=== PATIENT | female | born 1985 | race Caucasian/White ===

== ENCOUNTER 2017-11-18 08:13 | Inpatient (IN) | payer OTHER ==
[2017-11-17] MEDS: LACTATED RINGER'S 1000 ML INJ 1,000 ML IV SCH (20:00)
[2017-11-18] MEDS ORDERED: LACTATED RINGER'S 1000 ML INJ 1,000 ML IV PRN (08:36)
[2017-11-18] MEDS ORDERED: LACTATED RINGER'S 1000 ML INJ 1,000 ML IV SCH (08:36)
--- NOTE | 2017-11-18 08:44 | HHI.HP ---
HPI Chief Complaint postdates induction, on admission pt states SROM'd at 3am today Date Seen: November 18, 2017 Time Seen: 08:30 Travel History International Travel<30 Days: No Contact w/Intl Traveler<30Days: No Known Affected Area: No History of Present Illness HPI 31 yo G1 with galdamez female IUP at 41w1d, EDC 11/10/17, admit for labor induction but states overnight water broke clear fluid leakage since 3am. No regular contractions, no vaginal bleeding, endorses good FM. Pain 2/10 low pressure in pelvis. Weeks Gestation: 41 Para: 0 : 1 Miscarriage: 0 : 0 History Past Medical History Narrative Medical denies significant Obstetric History Obstetric History G1 = current Past Surgical History Narrative Surgical thoracic sympathetectomy Family History Family History: Negative Social History Alcohol Use: No Tobacco Use: No Substance Abuse: No Allergies-Medications (Allergen,Severity, Reaction): Coded Allergies: No Known Allergies (Unverified , 11/18/17) Review of Systems General / Constitutional: Weight Gain, No: Fever, Chills, Other Eyes: No: Diploplia, Blurred Vision, Visual changes, Pain, Photophobia HENT: No: Headaches, Vertigo, Lightheadedness Cardiovascular: No: Irregular Rhythm, Chest Pain or Discomfort, Palpitations, Tachycardia, Syncope, Varicosities, Edema, Cyanosis Respiratory: No: Cough, Short of Breath, Other Gastrointestinal: No: Nausea, Vomiting, Diarrhea Genitourinary: Pelvic Pain (pressure), No: Decreased Urinary Output, Oliguria Musculoskeletal: No: Limited ROM, Weakness, Cramping, Edema, Pain Skin: No Rash, No Itching, No Dryness, No Lumps, No Change in Pigmentation, No Change in Nails, No Alopecia, No Lesions Neurologic: No: Weakness, Dizziness, Syncope, Focal Abnormalities, Coordination Problem, Headache, Slurred Speech, Seizures Psychiatric: No: Depression, Suicidal Ideations, Homicidal Ideation Endocrine: No: Heat Intolerance, Cold Intolerance, Polydipsia, Polyuria, Other Physical Exam Narrative GENERAL: Well-nourished, well-developed patient. SKIN: Warm and dry. HEAD: Normocephalic and atraumatic. EYES: No scleral icterus. No injection or drainage. ENT: No nasal drainage noted. Mucous membranes pink. Airway patent. NECK: Supple, trachea midline. No JVD. CARDIOVASCULAR: Regular rate and rhythm without murmurs, gallops, or rubs. RESPIRATORY: Breath sounds equal bilaterally. No accessory muscle use. BREASTS: . ABDOMEN/GI: Abdomen soft, non-tender, bowel sounds present, no rebound, no guarding Gravid to [41] weeks size Fundal Height: [41] GENITOURINARY: External Genitalia: intact and normal in appearance BUS glands: [wnl] Cervix: [mid] Dilatation: [3] Effacement: [90] Station: [-2] Presentation: [vtx] Membranes: [SROM'd clear at 3am] Uterine Contractions: [q4 min] FHT's: Category: [I] Baseline: [140s] Reactive: [y] Variability: [y] Decels: [n] EXTREMITIES: No cyanosis or edema. BACK: Nontender without obvious deformity. No CVA tenderness. NEUROLOGICAL: Awake and alert. Motor and sensory grossly within normal limits. Five out of 5 muscle strength in all muscle groups. Normal speech. Caprini VTE Risk Assessment Caprini VTE Risk Assessment: No/Low Risk (score <= 1) VTE Pharm Contraindication: Epidural catheter Caprini Risk Assessment Model Point Value = 1 Point Value = 2 Point Value = 3 Point Value = 5 Age 41-60 Minor surgery BMI > 25 kg/m2 Swollen legs Varicose veins or History of unexplained or recurrent spontaneous Oral contraceptives or hormone replacement Sepsis (< 1 month) Serious lung disease, including pneumonia (< 1 month) Abnormal pulmonary function Acute myocardial infarction Congestive heart failure (< 1 month) History of inflammatory bowel disease Medical patient at bed rest Age 61-74 Arthroscopic surgery Major open surgery (> 45 min) Laparoscopic surgery (> 45 min) Malignancy Confined to bed (> 72 hours) Immobilizing plaster cast Central venous access Age >= 75 History of VTE Family history of VTE Factor V Leiden Prothrombin [id number] Lupus anticoagulant Anticardiolipin antibodies Elevated serum homocysteine Heparin-induced thrombocytopenia Other congenital or acquired thrombophilia Stroke (< 1 month) Elective arthroplasty Hip, pelvis, or leg fracture Acute spinal cord injury (< 1 month) Prophylaxis Regimen Total Risk Factor Score Risk Level Prophylaxis Regimen 0-1 Low Early ambulation 2 Moderate Order ONE of the following: *Sequential Compression Device (SCD) *Heparin 5000 units SQ BID 3-4 Higher Order ONE of the following medications: *Heparin 5000 units SQ TID *Enoxaparin/Lovenox 40 mg SQ daily (WT < 150 kg, CrCl > 30 mL/min) *Enoxaparin/Lovenox 30 mg SQ daily (WT < 150 kg, CrCl > 10-29 mL/min) *Enoxaparin/Lovenox 30 mg SQ BID (WT < 150 kg, CrCl > 30 mL/min) AND/OR *Sequential Compression Device (SCD) 5 or more Highest Order ONE of the following medications: *Heparin 5000 units SQ TID (Preferred with Epidurals) *Enoxaparin/Lovenox 40 mg SQ daily (WT < 150 kg, CrCl > 30 mL/min) *Enoxaparin/Lovenox 30 mg SQ daily (WT < 150 kg, CrCl > 10-29 mL/min) *Enoxaparin/Lovenox 30 mg SQ BID (WT < 150 kg, CrCl > 30 mL/min) AND *Sequential Compression Device (SCD) Data Data Vital Signs Reviewed: Yes Orders Orders Admit To Inpatient (11/18/17 ) Code Status (11/18/17 08:36) Vital Signs (Adult) .Per protocol (11/18/17 08:36) Activity Oob Ad Magaly (11/18/17 08:36) Heart (11/18/17 08:36) Amnioinfusion (11/18/17 08:36) Urinary Catheter Management .ONCE (11/18/17 08:36) Diet Liquid (11/18/17 Breakfast) Lactated Ringer's 1000 Ml Inj (Lr 1000 M (11/18/17 08:36) Lactated Ringer's 1000 Ml Inj (Lr 1000 M (11/18/17 08:36) Sodium Chlorid 0.9% 500 Ml Inj (Ns 500 M (11/18/17 08:45) Sodium Chlor 0.9% 1000 Ml Inj (Ns 1000 M (11/18/17 08:56) Lidocaine 1% Inj (50 Ml) (Xylocaine 1% I (11/18/17 08:45) Citric Acid-Sodium Citrate Liq (Bicitra (11/18/17 08:45) Ondansetron Inj (Zofran Inj) (11/18/17 08:45) Fentanyl Inj (Fentanyl Inj) (11/18/17 08:45) Fentanyl Inj (Fentanyl Inj) (11/18/17 08:45) Complete Blood Count With Diff (11/18/17 08:36) Hold Clot (11/18/17 08:36) Abo/Rh Blood Type (11/18/17 08:36) Urinalysis - C+S If Indicated (11/18/17 08:36) Drug Screen, Random Urine (11/18/17 08:36) Ob/Psych Drug Screen, Urine (11/18/17 08:36) Resp Oxygen Non Rebreathe Mask (11/18/17 ) ^ Epidural / Intrathecal Infus (11/18/17 08:36) Oxytocin 30 Units-500ml Premix (Pitocin (11/18/17 08:45) Lidocaine 1% Inj (50 Ml) (Xylocaine 1% I (11/18/17 08:45) Light Mineral Oil (Muri-Lube Oil) (11/18/17 08:45) ^ Non Stress Test (11/18/17 08:36) Response To Medication .Post New Med Administration, Reaction (11/18/17 08:36) ^ Discontinue Medication (11/18/17 08:36) Oxytocin Drip:Individualized (11/18/17 08:45) Inpatient Certification (11/18/17 ) Specimen To Be Collected PRN (11/18/17 08:36) Specimen To Be Collected PRN (11/18/17 08:36) Group B Strep: Negative Assessment/Plan Problem List: (1) Leakage of amniotic fluid ICD Codes: O42.90 - Premature rupture of membranes, unspecified as to length of time between rupture and onset of labor, unspecified weeks of gestation Status: Acute (2) Post-dates ICD Codes: O48.0 - Post-term Status: Acute Qualifiers: Qualified Codes: O48.0 - Post-term Assessment and Plan 31 yo G1 with galdamez IUP at 41w1d, scheduled for postdates induction, came in with report of SROM at 3am 1) SROM/PROM - same SVE as yesterday in office, d/w pt will augment with pitocin , orders placed, pt & amenable to augmentation 2) GBS neg 3) status: vtx, female, EFW <8#, Cat I tracing 4) dispo: anticipate d/c 2-3d PP Discharge Planning routine, 2-3d PP Rosalind Altamirano MD November 18, 2017 08:44
[2017-11-18] MEDS ORDERED: MINERAL OIL 10 ML VIAL TOPICAL PRN (08:45)
[2017-11-18] MEDS ORDERED: CITRIC ACID-SODIUM CITRATE LIQ 30 ML UDC PO SCH ×2 (08:45→13:30)
[2017-11-18] MEDS ORDERED: LIDOCAINE HCL 1% 50 ML VIAL I-DERMAL PRN (08:45)
[2017-11-18] MEDS ORDERED: OXYTOCIN 30 UNITS-500ML PREMIX 500 ML IV ONE ×2 (08:45→13:45)
[2017-11-18] MEDS ORDERED: SODIUM CHLORID 0.9% 500 ML INJ 500 ML IV PRN (08:45)
[2017-11-18] MEDS ORDERED: OXYTOCIN 30 UNITS-500ML PREMIX 500 ML IV PRN ×2 (08:45→18:45)
[2017-11-18] MEDS ORDERED: LIDOCAINE HCL 1% 50 ML VIAL INFIL PRN (08:45)
[2017-11-18] MEDS ORDERED: SODIUM CHLOR 0.9% 1000 ML INJ 1,000 ML IV PRN (08:56)
[2017-11-18 09:14] LABS: AUTOMATED NEUTROPHIL # 7.1 TH/MM3 (1.8-7.7); BASOPHIL # 0.1 TH/MM3 (0-0.2); BASOPHIL % 0.7 % (0.0-2.0); EOSINOPHIL # 0.1 TH/MM3 (0-0.4); EOSINOPHIL % 0.8 % (0.0-4.0); HEMATOCRIT 32.2 % (35.0-46.0); HEMOGLOBIN 11.6 GM/DL (11.6-15.3); LYMPH % 16.8 % (9.0-44.0); LYMPHOCYTE # 1.6 TH/MM3 (1.0-4.8); MEAN CELL VOLUME 88.5 FL (80.0-100.0); MEAN CORPUSCULAR HEMOGLOBIN 31.8 PG (27.0-34.0); MEAN CORPUSCULAR HGB CONC 35.9 % (32.0-36.0); MEAN PLATELET VOLUME 9.7 FL (7.0-11.0); MONO % 6.2 % (0.0-8.0); MONOCYTE # 0.6 TH/MM3 (0-0.9); NEUT % 75.5 % (16.0-70.0); PLATELET COUNT 162 TH/MM3 (150-450); RED BLOOD COUNT 3.64 MIL/MM3 (4.00-5.30); RED CELL DISTRIBUTION WIDTH 13.1 % (11.6-17.2); WHITE BLOOD COUNT 9.5 TH/MM3 (4.0-11.0)
[2017-11-18 09:18] LABS: BILIRUBIN, URINE NEG (NEG); BLOOD, URINE SMALL (NEG); GLUCOSE,URINE NEG (NEG); KETONE, URINE NEG (NEG); MUCUS URINE FEW /lpf (OCC); NITRITE,URINE NEG (NEG); PH, URINE 6.5 (5.0-8.5); SQUAMOUS EPITHELIAL CELL URINE 4 /hpf (0-5); URINE COLOR YELLOW (YELLW/STRAW); URINE LEUKOCYTE ESTERASE SMALL (NEG)
--- NOTE | 2017-11-18 11:38 | HHI.PR ---
RD MANAGER Note Note to bedside for review of strip; since initially put on monitor marked variability, IFSE placed by RN around [id number] to confirm tracing; MFM reviewed tracing as well and agrees to watch closely, would not officially call sinusoidal but definitely marked variability; I d/w pt the tracing, possible implications, at this time will plan watch for next 30 min to see if improves or if marked cervical change, if neither would plan to proceed with delivery via Rosalind Altamirano MD November 18, 2017 11:38
[2017-11-18] MEDS ORDERED: DEXAMETHASONE SOD PHOS 4 MG/ML VIAL IV ONE (12:00)
[2017-11-18] MEDS ORDERED: ePHEDrine/NS 25 MG/5 ML SYRINGE IV ONE (12:00)
[2017-11-18] MEDS ORDERED: LACTATED RINGER'S 1000 ML INJ 2,000 ML IV ONE (12:00)
[2017-11-18] MEDS ORDERED: PHENYLEPH/NS 1000 MCG/10 ML SYR IV ONE (12:00)
[2017-11-18] MEDS ORDERED: OXYTOCIN 10 UNIT/ML AMP IV ONE (12:00)
[2017-11-18] MEDS ORDERED: ONDANSETRON HCL 4 MG/2 ML VIAL IV ONE (12:00)
[2017-11-18] MEDS ORDERED: MORPHINE SULFATE PF 5 MG/10 ML VIAL ONE (12:18)
[2017-11-18] MEDS ORDERED: ceFAZolin 2 GM PREMIX 50 ML IV SCH (13:00)
--- NOTE | 2017-11-18 13:30 | PD.OB.DELI ---
Procedure Note Section Procedure Pre Op Diagnosis: (1) Non-reassuring electronic monitoring tracing (2) Post-dates (3) Leakage of amniotic fluid Post Op Diagnosis: (1) S/P primary low transverse (2) Non-reassuring electronic monitoring tracing (3) Post-dates (4) Leakage of amniotic fluid Performed by Rosalind Altamirano Procedure: Primary Low Transverse Sec Indication for delivery: Nonreassuring heart tracing Previous condition: None Informed consent obtained: For anesthesia, For procedure Confirmed correct: Patient, Procedure, Site, Time-out taken Anesthesia: Spinal Medication prior to procedure: As documented in eMAR Monitoring during procedure: Blood pressure monitoring, library monitor, Pulse oximetry Urinary catheter: Inserted using sterile technique, To dependent drainage Sterile preparation: Duraprep, In usual fashion, With drapes to expose affected area Position: Supine with wedge to right side Operative Features Skin Incision: Pfannenstiel Uterine Incision: Low transverse w/knife / scissors Membranes Ruptured: Previously, Appearance of fluid (clear) Presentation: Occiput posterior Delivery date: November 18, 2017 Delivery time: 12:48 Delivery of infant: Uneventful Infant: Female, Single One Minute : 8 Five Minute : 9 Weight: 7#14oz Status of : Viable, Cord blood, Nursery present Placenta delivered: Intact (but delivered very quickly with delivery of ; questionable small abruption), Sent to pathology Medications: Antibiotics (ancef 2g IV preop) Estimated blood loss: 500 mL Procedure tolerated: Well Maternal Condition: Stable Condition: Stable (NICU evaluated in OR and no abnormality on evaluation ; nursery status currently) Procedure in detail see dictated op note for full details Rosalind Altamirano MD November 18, 2017 13:30
[2017-11-18] MEDS ORDERED: KETOROLAC TROMETHAMINE 60 MG/2 ML (IM) VIAL IM PRN (13:45)
[2017-11-18] MEDS ORDERED: DOCUSATE SODIUM 50 MG/SENNA 8.6 MG TAB PO PRN (13:45)
[2017-11-18] MEDS ORDERED: ACETAMINOPHEN 325 MG TAB PO PRN (13:45)
[2017-11-18] MEDS ORDERED: SIMETHICONE 80 MG CHEWABLE TAB PO PRN (13:45)
[2017-11-18] MEDS: SODIUM CHLORIDE 0.9% FLUSH 10 ML FLUSH IV FLUSH SCH (13:45)
[2017-11-18] MEDS ORDERED: ZOLPIDEM TARTRATE 5 MG TAB PO PRN (13:45)
[2017-11-18] MEDS ORDERED: oxyCODONE/ACETAMINOPHEN 5 MG/325 MG TAB PO PRN ×2 (13:45)
[2017-11-18] MEDS ORDERED: SODIUM CHLORIDE 0.9% FLUSH 10 ML FLUSH IV FLUSH PRN (13:45)
[2017-11-18] MEDS ORDERED: ACETAMINOPHEN 1000 MG/100 ML 100 ML IV ONE (14:00)
--- NOTE | 2017-11-18 14:51 | MP ---
cc: Rosalind Altamirano MD DATE OF OPERATION: 11/18/2017 DATE OF PROCEDURE: 11/18/2017 PREOPERATIVE DIAGNOSES: 1. Nonreassuring electronic heart monitoring. 2. Postdates . 3. Spontaneous rupture of amniotic fluid. POSTOPERATIVE DIAGNOSES: 1. Nonreassuring electronic heart monitoring. 2. Postdates . 3. Spontaneous rupture of amniotic fluid. 4. Postoperative day number 0. INDICATION FOR PROCEDURE: Shital Parra is a 31-year-old 1, para 1-0-0-1, who was brought in for labor induction due to postdates on the morning of 11/18/2017. On presentation, the patient reported that around 3:00 a.m. she thought her water had broken, but she did not feel regular contractions, so she did not come in. On vaginal exam, she was found to be 3 cm, approximately 90% effaced and -1 station with amniotic fluid leaking. When the patient was put on the monitor, heart tracing was somewhat irregular-appearing with marked variability. A scalp electrode was placed and this confirmed that it was heart tracing that was being seen. The maternal medicine specialist was consulted. He evaluated the tracing, stated he would not call it sinusoidal but it was marked variability. He watched it very closely and deemed it safe to start Pitocin augmentation if necessary. Pitocin was started at a low dose. The heart tracing remained the same. There was reactivity in between but due to the marked variability and concern for issue, it was discussed with the patient and her that if there was not significant cervical change, then delivery should be expedited, therefore leading to . The patient and understood. The patient did not progress in labor and as such she was taken for delivery via . PROCEDURE PERFORMED: Primary low transverse delivery. SURGEON: Rosalind Altamirano MD TYPE OF ANESTHESIA: Spinal. ESTIMATED BLOOD LOSS: 500 mL. URINE OUTPUT: Please see anesthesia record. There was clear urine draining in the Lange bag at the end of the procedure. IV FLUID REPLACEMENT: Please see anesthesia record. PROPHYLAXIS: Ancef 2 grams IV was given preoperatively. SCDs were on and functioning throughout the entire case. INTRAOPERATIVE FINDINGS: Include a vigorous viable female infant in direct OP presentation. The placenta delivered rather quickly after the delivery of the without any uterine manipulation. There was a suspected either partial or small abruption, which may have led to the irregular tracing. The placenta was sent to pathology. Otherwise, was healthy and vigorous, Apgars of 8 and 9 and weight of 7 pounds 14 ounces. It was a female infant. The uterus, bilateral fallopian tubes and ovaries were within normal limits. SPECIMEN: Includes placenta to pathology. COMPLICATIONS: None. COUNTS: Sponge, lap, instrument and needle were correct x 2 at the conclusion of the procedure. PROCEDURE IN DETAIL: After reviewing the informed consent, the patient was taken to the operating suite, where a timeout was performed to identify the patient, the planned procedure and any known allergies to drugs or drug products. The patient was placed sitting up on the operative table and spinal anesthesia was administered without difficulty and found to be adequate. The patient was then laid in dorsal supine position with a bump under her right side and abdomen and perineum were prepped and draped in normal sterile fashion. Lange catheter was placed using sterile technique. The scalp electrode that had been placed during labor was unable to be successfully removed. It was felt that it was caught in the infant's hair. The scalp electrode was cut at the level of the perineum and the perineum was prepped thoroughly. Attention was then turned abdominally, where a Pfannenstiel type skin incision was made with a scalpel, carried down to the underlying fascia with the Bovie. The fascia was incised in the midline. Incision was extended laterally with sharp dissection using Cabral scissors. The superior aspect of the fascial incision was elevated with Marilou clamps, rectus muscles were dissected off sharply with Cabral scissors. Marilou was then moved to the inferior aspect of the fascial incision, again elevated, and rectus muscles were dissected off sharply with Cabral scissors. Rectus muscles were then in the midline. Peritoneum was identified and entered bluntly with surgeon's index finger. The incision was extended superiorly and inferiorly with good visualization of intra-abdominal contents. Using pickups and Metzenbaum scissors a bladder flap was made. The bladder blade was then replaced. A low transverse uterine incision was made. This was extended bluntly. 's head was gently grasped and flexed out through the incision. With gentle maneuvering, the rest of the body easily delivered. Infant was immediately vigorous and crying upon delivery and scalpel electrode was in fact caught in the infant's hair. This was removed without complication. Delayed cord clamping was performed. Cord was then clamped and cut and the was handed off to the awaiting nursery staff, who evaluated the and found no abnormalities. At that time was deemed to be nursery status. The patient and her had desired cord blood banking. The sample was taken. The placenta was then delivered spontaneously. It was found to be almost completely detached without much manipulation. It was sent to pathology for further evaluation. The uterus was then exteriorized, cleared of all clots and debris with sterile moist lap sponges. The hysterotomy was repaired in a double-layer, first in a running locked layer, then an imbricating layer using #1 chromic. The posterior cul-de-sac was irrigated copiously with warm sterile saline. The uterus was then returned to the abdomen. Additional irrigation and suction of the gutters was performed. Again, the repaired hysterotomy was evaluated and found to have excellent hemostasis. The peritoneum was then closed in a running layer with 2-0 chromic. The fascia was closed in a running layer with #1 Vicryl. Subcutaneous tissue was irrigated and hemostasis was ensured with the Bovie. The skin was then cleaned and dried and closed in a subcuticular fashion with 3-0 Monocryl. Steri-Strips were then placed, as well as a standard dressing. The procedure concluded at this point. The patient tolerated the procedure well without complication. DISPOSITION: Patient's estimated length of stay is 2-3 postoperative days. is nursery status. MD VASHTI Juarez/ADALGISA , 02:20 PM , 02:49 PM OSEAS
[2017-11-18] MEDS: ONDANSETRON ODT 4 MG TAB PO PRN (17:34)
[2017-11-18 20:44] VITALS: BP 105/68; PULSE 80; RESP 18; TEMP 98
[2017-11-19 00:02] VITALS: BP 107/66; PULSE 77; RESP 18; TEMP 99
[2017-11-19] MEDS: ONDANSETRON ODT 4 MG TAB PO PRN (00:26)
[2017-11-19] MEDS: LACTATED RINGER'S 1000 ML INJ 1,000 ML IV SCH (04:31)
[2017-11-19 04:35] VITALS: BP 100/65; PULSE 72; RESP 18; TEMP 98.1
[2017-11-19 05:56] LABS: AUTOMATED NEUTROPHIL # 13.9 TH/MM3 (1.8-7.7); BASOPHIL % 0.1 % (0.0-2.0); EOSINOPHIL % 0.1 % (0.0-4.0); HEMATOCRIT 25.2 % (35.0-46.0); HEMOGLOBIN 8.6 GM/DL (11.6-15.3); LYMPH % 10.3 % (9.0-44.0); LYMPHOCYTE # 1.7 TH/MM3 (1.0-4.8); MEAN CELL VOLUME 89.9 FL (80.0-100.0); MEAN CORPUSCULAR HEMOGLOBIN 30.7 PG (27.0-34.0); MEAN CORPUSCULAR HGB CONC 34.1 % (32.0-36.0); MONO % 6.1 % (0.0-8.0); NEUT % 83.4 % (16.0-70.0); PLATELET COUNT 140 TH/MM3 (150-450); RED CELL DISTRIBUTION WIDTH 13.1 % (11.6-17.2); WHITE BLOOD COUNT 16.7 TH/MM3 (4.0-11.0)
--- NOTE | 2017-11-19 07:58 | HHI.OB ---
Subjective Post Operative Day: 1 Remarks doing well, +void, no vomiting today Objective Vitals/I&O Vital Signs Date Time Temp Pulse Resp B/P (MAP) Pulse Ox O2 Delivery O2 Flow Rate FiO2 11/19/17 04:35 98.1 72 18 100/65 (77) 11/19/17 00:02 99.0 77 18 107/66 (80) 11/18/17 20:44 98.0 80 18 105/68 (80) Result Diagram: 11/19/17 0500 Objective Remarks GENERAL: Well-nourished, well-developed patient. CARDIOVASCULAR: Regular rate and rhythm without murmurs, gallops, or rubs. RESPIRATORY: Breath sounds equal bilaterally. No accessory muscle use. ABDOMEN/GI: Abdomen soft, non-tender, bowel sounds present. Incision: dressing Clean, dry and intact. Fundus: Firm, non-tender at umbilicus. GENITOURINARY: Light to moderate bleeding. EXTREMITIES: No cyanosis or edema, non-tender, without signs of DVT. Medications and IVs Current Medications Medications (Trade) Dose Ordered Sig/Abbey Route Start Time Stop Time Status Last Admin Lactated Ringer's 1,000 ml @ 3,000 mls/hr Q20M PRN IV 11/18/17 08:36 Sodium Chloride 1,000 ml @ 100 mls/hr Q10H PRN IV 11/18/17 08:56 (Xylocaine 1% Inj (50 ml)) 0.1 ml UNSCH X1 PRN I-DERMAL 11/18/17 08:45 11/21/17 08:44 (Zofran Odt) 4 mg Q6H PRN PO 11/18/17 08:45 11/19/17 00:26 (Xylocaine 1% Inj (50 ml)) 10 ml UNSCH X1 PRN INFIL 11/18/17 08:45 11/20/17 08:44 (Muri-Lube Oil) 10 ml UNSCH PRN TOPICAL 11/18/17 08:45 Oxytocin 500 ml @ 0 mls/hr TITRATE PRN IV 11/18/17 08:45 11/18/17 11:06 Lactated Ringer's 1,000 ml @ 100 mls/hr Q10H IV 11/18/17 18:31 11/19/17 14:30 11/17/17 20:00 Oxytocin 500 ml @ 100 mls/hr UNSCH X1 PRN IV 11/18/17 18:45 11/19/17 18:44 (NS Flush) 2 ml BID IV FLUSH 11/18/17 13:45 (NS Flush) 2 ml UNSCH PRN IV FLUSH 11/18/17 13:45 (Mylicon Chew) 80 mg QID PRN PO 11/18/17 13:45 (Tylenol) 650 mg Q6H PRN PO 11/18/17 13:45 (Motrin) 600 mg Q6H PRN PO 11/18/17 13:45 (Toradol Inj) 30 mg Q6H PRN IM 11/18/17 13:45 11/19/17 13:44 (Percocet 5-325 Mg) 1 tab Q4H PRN PO 11/18/17 13:45 (Percocet 5-325 Mg) 2 tab Q4H PRN PO 11/18/17 13:45 (Sabra-Colace) 2 tab Q12H PRN PO 11/18/17 13:45 (Ambien) 5 mg HS PRN PO 11/18/17 13:45 (M-M-R Ii Inj) 0.5 ml ONCE ONCE SQ 11/19/17 16:00 11/19/17 16:01 (Boostrix Inj) 0.5 ml ONCE ONCE IM 11/19/17 16:00 11/19/17 16:01 Assessment/Plan Problem List: (1) Leakage of amniotic fluid ICD Codes: O42.90 - Premature rupture of membranes, unspecified as to length of time between rupture and onset of labor, unspecified weeks of gestation Status: Acute (2) Post-dates ICD Codes: O48.0 - Post-term Status: Acute Qualifiers: Qualified Codes: O48.0 - Post-term (3) S/P primary low transverse ICD Codes: Z98.891 - History of uterine scar from previous surgery Assessment and Plan 31 yo G1 with galdamez IUP at 41w1d, s/p C/S POD#1 doing well, routine PP care Discharge Planning routine, 2-3d PP Attending Attestation pt seen by Analy Mckenzie MD November 19, 2017 07:58
[2017-11-19] MEDS: SODIUM CHLORIDE 0.9% FLUSH 10 ML FLUSH IV FLUSH SCH ×2 (10:11→21:19)
[2017-11-19] MEDS: IBUPROFEN 600 MG TAB PO PRN ×2 (14:52→21:17)
[2017-11-19] MEDS ORDERED: DIPHTH/TETANUS/ACEL PERTUSSIS (BOOSTER) 0.5 ML VIAL/PFS IM ONE (16:00)
[2017-11-19] MEDS ORDERED: MEASLES, MUMPS, RUBELLA VACCINE 0.5 ML VIAL SQ ONE (16:00)
[2017-11-19 20:35] VITALS: BP 86/51; PULSE 85; RESP 17; TEMP 98.1
--- NOTE | 2017-11-20 08:54 | HHI.OB ---
Subjective Post Operative Day: 2 Remarks feeling well pain controlled not orthostatic or dizzy Objective Vitals/I&O Vital Signs Date Time Temp Pulse Resp B/P (MAP) Pulse Ox O2 Delivery O2 Flow Rate FiO2 11/19/17 20:35 98.1 85 17 86/51 (63) Result Diagram: 11/19/17 0500 Objective Remarks GENERAL: Well-nourished, well-developed patient. CARDIOVASCULAR: Regular rate and rhythm without murmurs, gallops, or rubs. RESPIRATORY: Breath sounds equal bilaterally. No accessory muscle use. ABDOMEN/GI: Abdomen soft, non-tender, bowel sounds present. Incision: dressing Clean, dry and intact. Fundus: Firm, non-tender at umbilicus. GENITOURINARY: Light to moderate bleeding. EXTREMITIES: No cyanosis or edema, non-tender, without signs of DVT. Medications and IVs Current Medications Medications (Trade) Dose Ordered Sig/Abbey Route Start Time Stop Time Status Last Admin Lactated Ringer's 1,000 ml @ 3,000 mls/hr Q20M PRN IV 11/18/17 08:36 Sodium Chloride 1,000 ml @ 100 mls/hr Q10H PRN IV 11/18/17 08:56 (Xylocaine 1% Inj (50 ml)) 0.1 ml UNSCH X1 PRN I-DERMAL 11/18/17 08:45 11/21/17 08:44 (Zofran Odt) 4 mg Q6H PRN PO 11/18/17 08:45 11/19/17 00:26 (Muri-Lube Oil) 10 ml UNSCH PRN TOPICAL 11/18/17 08:45 Oxytocin 500 ml @ 0 mls/hr TITRATE PRN IV 11/18/17 08:45 11/18/17 11:06 (NS Flush) 2 ml BID IV FLUSH 11/18/17 13:45 11/19/17 21:19 (NS Flush) 2 ml UNSCH PRN IV FLUSH 11/18/17 13:45 (Mylicon Chew) 80 mg QID PRN PO 11/18/17 13:45 (Tylenol) 650 mg Q6H PRN PO 11/18/17 13:45 (Motrin) 600 mg Q6H PRN PO 11/18/17 13:45 11/19/17 21:17 (Percocet 5-325 Mg) 1 tab Q4H PRN PO 11/18/17 13:45 11/19/17 17:58 (Percocet 5-325 Mg) 2 tab Q4H PRN PO 11/18/17 13:45 (Sabra-Colace) 2 tab Q12H PRN PO 11/18/17 13:45 11/19/17 21:16 (Ambien) 5 mg HS PRN PO 11/18/17 13:45 Assessment/Plan Problem List: (1) Leakage of amniotic fluid ICD Codes: O42.90 - Premature rupture of membranes, unspecified as to length of time between rupture and onset of labor, unspecified weeks of gestation Status: Acute (2) Post-dates ICD Codes: O48.0 - Post-term Status: Acute Qualifiers: Qualified Codes: O48.0 - Post-term (3) S/P primary low transverse ICD Codes: Z98.891 - History of uterine scar from previous surgery Assessment and Plan 31 yo G1 with galdamez IUP at 41w1d, s/p C/S POD#1 doing well, routine PP care 11/20/17 POD 2 would like discharge Hgb 8.6 still has saline lock will give venofir and if up to discharge afterwards will send home Discharge Planning routine, 2-3d PP Kathy Osuna MD November 20, 2017 08:54
[2017-11-20] MEDS ORDERED: OXYC1TAB63 PO (08:55)
[2017-11-20] MEDS ORDERED: IBUP-232 PO (08:55)
--- NOTE | 2017-11-20 08:56 | HHI.DCPOC ---
Discharge Care Plan Report Symptoms to Your Doctor -Temperature above 100.5 degrees -Redness, of incision or excessive or foul smelling drainage -Unusual pain or calf pain -Increased vaginal bleeding -Painful or difficulty urinating -Feelings of extreme sadness or anxiety after 2 weeks Goals to Promote Your Health * To prevent worsening of your condition and complications * To maintain your health at the optimal level Directions to Meet Your Goals Take your medications as prescribed Follow your dietary instruction Follow activity as directed Ensure plenty of rest for recovery Drink fluids for hydration Keep your appointments as scheduled Take your immunizations and boosters as scheduled If your symptoms worsen call your PCP, if no PCP go to Urgent Care Center or Emergency Room Smoking is Dangerous to Your Health. Avoid second hand smoke Call the 24-hour crisis hotline for domestic abuse at Kathy Osuna MD November 20, 2017 08:56
[2017-11-20] MEDS ORDERED: IRON SUCROSE INJ 200 MG in SODIUM CHLORIDE 0.9% INJ 100 ML IV ONE (09:00)
[2017-11-20] MEDS: SODIUM CHLORIDE 0.9% FLUSH 10 ML FLUSH IV FLUSH SCH (09:30)
== END 2017-11-20 14:18 | disposition home or self-care (01) | DRG 766 ==
LOC: H2EA 08:13 → H1EA 14:52
PROVIDERS: ADMIT Obstetrics & Gynecology; ATTEND Obstetrics & Gynecology
PROC: 10D00Z1 Extraction of Products of Conception, Low, Open Approach (ICD-10-PCS; principal; 2017-11-18)
PROC: 3E033VJ Introduction of Other Hormone into Peripheral Vein, Percutaneous Approach (ICD-10-PCS; 2017-11-18)
PROC: 4A1H74Z Monitoring of Products of Conception, Cardiac Electrical Activity, Via Natural or Artificial Opening (ICD-10-PCS; 2017-11-18)
PROC: 3E033GC Introduction of Other Therapeutic Substance into Peripheral Vein, Percutaneous Approach (ICD-10-PCS; 2017-11-20)
DX: O48.0 Post-term pregnancy (principal); O42.92 Full-term premature rupture of membranes, unspecified as to length of time between rupture and onset of labor; O76 Abnormality in fetal heart rate and rhythm complicating labor and delivery; Z37.0 Single live birth; Z3A.41 41 weeks gestation of pregnancy
CPT/HCPCS: 59025; 80307; 81001; 82805; 85025; 86900; 86901; 88307; 90715; C1765; J0131; J0690; J1100; J1756; J2274; J2370; J2405; J2590; J3010; J7120